=== PATIENT | female | born 1970 | race African-American/Black ===

== ENCOUNTER 2016-08-18 15:09 | Emergency (ER) | payer OTHER ==
[~2016-08-18 15:09] MED LIST: ALBUTEROL17 GM INH; AMOXICILLIN; AMOXICILLIN875 MG PO; ASPIRIN PO; AUGMENTIN PO; BACTRIM DS TABL1 TA1 PO; BENZONATATE PO; BIRTH CONTROL PILL PO; DICYCLOMINE HCL20 MG PO; EPIPEN0.3 MG/0.1 IM; FLAGYL PO; FLONASE16 GM; HYDROCHLOROTHIA25 MG PO; KEFLEX PO; KEFLEX500 MG PO; KETOPROFEN PO; MEDROL PO; NITROGYLCERIN SUBLINGUAL; NO MEDICATIONS; NORVASC PO; PREDNISONE; PREDNISONE PO; TOPROL XL 50 MG50 MG PO; TUSSIONEX PENN473 ML PO; VIBRAMYCIN100 M1 PO; ZESTORETIC 20-1 EAC1 PO; ZITHROMAX1 G/PKT PO
== END 2016-08-18 15:46 | disposition home or self-care (01) ==
LOC: SED 15:09
DX: J01.10 Acute frontal sinusitis, unspecified (principal); J01.00 Acute maxillary sinusitis, unspecified; Z87.891 Personal history of nicotine dependence
CPT/HCPCS: 99283